=== PATIENT | female | born 1985 | race Two or more races ===

== ENCOUNTER 2020-07-28 12:27 | Emergency (ER) | payer MEDICAID ==
[~2020-07-28] VITALS: Ht 167.6 cm; Wt 104.3 kg
[2020-07-28 12:45] VITALS: BP 132/95
== END 2020-07-28 15:35 | disposition home or self-care (01) ==
LOC: ER 12:27
DX: S61.212A Laceration without foreign body of right middle finger without damage to nail, initial encounter (principal); W26.9XXA Contact with unspecified sharp object(s), initial encounter; Y93.89 Activity, other specified; Y92.89 Other specified places as the place of occurrence of the external cause; Y99.8 Other external cause status
CPT/HCPCS: 12002